=== PATIENT | male | born 1970 | race Caucasian/White ===

== ENCOUNTER 2020-09-04 10:06 | Inpatient (IN) | payer OTHER ==
[2020-09-04 12:00] VITALS: BMI 18.6
[2020-09-04] MEDS ORDERED: MAGNESIUM CITRATE 300 ML BOTTLE PO PRN (13:42)
[2020-09-04] MEDS ORDERED: NICOTINE POLACRILEX 2 MG GUM BUC PRN (13:42)
[2020-09-04] MEDS ORDERED: BISMUTH SUBSALICYLATE 262 MG/15 ML BTL PO PRN (13:42)
[2020-09-04] MEDS ORDERED: ACETAMINOPHEN 325 MG TABLET (FP) PO PRN ×2 (13:42)
[2020-09-04] MEDS ORDERED: MAGNESIUM HYDROX 2400MG/30ML ORAL SUSPENSION 30 ML CUP PO PRN (13:42)
[2020-09-04] MEDS ORDERED: MENTHOL/PHENOL 1 EACH UD MM PRN (13:42)
[2020-09-04] MEDS ORDERED: ONDANSETRON *ODT* 4 MG TABLET SL PRN (13:42)
[2020-09-04] MEDS ORDERED: chlordiazePOXIDE HCL 25 MG CAPSULE PO PRN (13:42)
[2020-09-04] MEDS ORDERED: MAG HYDROX/AL HYDROX/SIMETH 30 ML UNIT-DOSE CUP PO PRN (13:42)
[2020-09-04] MEDS ORDERED: IBUPROFEN 400 MG TABLET (FP) PO PRN (13:42)
[2020-09-04] MEDS: METHOCARBAMOL 500 MG TABLET PO PRN (14:58)
[2020-09-04] MEDS: hydrOXYzine PAMOATE 25 MG CAPSULE (FP) PO SCH ×3 (14:58→22:06)
[2020-09-04] MEDS: NICOTINE 21 MG/24 HOURS TOPICAL PATCH TD SCH (14:59)
[2020-09-04] MEDS: PRENATAL VITAMINS W/ FOLIC ACID TABLET (FP) PO SCH (14:59)
[2020-09-04 17:44] LABS: ALBUMIN 4.2 g/dl (3.4-5.0); CALCIUM 9.5 mg/dL (8.5-10.1)
[2020-09-04 17:45] LABS: HEMOGLOBIN 13.5 GM/dL (11.7-16.9); MCH 33.3 pg (25.7-33.7); MCHC 33.7 g/dl (32.0-35.9); MEAN CELL VOLUME 98.8 fl (80-96); MEAN PLT VOLUME 9.9 fl (7.5-11.1); PLATELET COUNT 210 K/MM3 (134-434); RBC 4.04 M/mm3 (4.00-5.60); RDW 12.6 % (11.9-15.9); WHITE BLOOD COUNT 13.1 K/mm3 (4.0-10.0)
[2020-09-04 17:47] LABS: CREATININE 0.9 mg/dL (0.55-1.3)
[2020-09-04 17:49] LABS: BILIRUBIN,TOTAL 0.8 mg/dL (0.2-1); TOT PROT 7.5 g/dl (6.4-8.2)
[2020-09-04] MEDS: chlordiazePOXIDE HCL 25 MG CAPSULE PO SCH ×2 (18:20→22:05)
[2020-09-04] MEDS: THIAMINE HCL 100 MG TABLET (FP) PO SCH (22:06)
[2020-09-04] MEDS: MELATONIN 5 MG TABLETS PO SCH (22:31)
[2020-09-05] MEDS: chlordiazePOXIDE HCL 25 MG CAPSULE PO SCH ×4 (06:34→22:29)
[2020-09-05] MEDS: hydrOXYzine PAMOATE 25 MG CAPSULE (FP) PO SCH ×5 (06:35→22:28)
[2020-09-05] MEDS: ALBUTEROL SO4 0.083% IH SOL 2.5 MG/3 ML VIAL.NEB. NEB PRN (07:14)
[2020-09-05] MEDS ORDERED: PENICILLIN G BENZATHINE 2,400,000 UNIT/4 ML PFS IM ONE (09:48)
[2020-09-05] MEDS: NICOTINE 21 MG/24 HOURS TOPICAL PATCH TD SCH (10:40)
[2020-09-05] MEDS: PRENATAL VITAMINS W/ FOLIC ACID TABLET (FP) PO SCH (10:41)
[2020-09-05] MEDS: THIAMINE HCL 100 MG TABLET (FP) PO SCH (22:28)
[2020-09-05] MEDS: MELATONIN 5 MG TABLETS PO SCH (22:28)
[2020-09-06] MEDS: hydrOXYzine PAMOATE 25 MG CAPSULE (FP) PO SCH ×5 (06:53→22:15)
[2020-09-06] MEDS: chlordiazePOXIDE HCL 25 MG CAPSULE PO SCH ×4 (06:54→22:15)
[2020-09-06] MEDS: METHOCARBAMOL 500 MG TABLET PO PRN ×2 (06:54→22:16)
[2020-09-06] MEDS: PRENATAL VITAMINS W/ FOLIC ACID TABLET (FP) PO SCH (10:25)
[2020-09-06] MEDS: NICOTINE 21 MG/24 HOURS TOPICAL PATCH TD SCH (10:25)
[2020-09-06 11:04] LABS: BASO % 0.8 % (0-2.0); EOS % 19.2 % (0-4.5); HEMATOCRIT 40.1 % (35.4-49); HEMOGLOBIN 13.5 GM/dL (11.7-16.9); LYMPH % 13.5 % (8-40); MCH 33.2 pg (25.7-33.7); MCHC 33.5 g/dl (32.0-35.9); MEAN CELL VOLUME 99.1 fl (80-96); MEAN PLT VOLUME 10.1 fl (7.5-11.1); MONO % 11.8 % (3.8-10.2); NEUT % 54.7 % (42.8-82.8); PLATELET COUNT 191 K/MM3 (134-434); RBC 4.05 M/mm3 (4.00-5.60); RDW 12.6 % (11.9-15.9); WHITE BLOOD COUNT 8.3 K/mm3 (4.0-10.0)
[2020-09-06] MEDS: ALBUTEROL SO4 0.083% IH SOL 2.5 MG/3 ML VIAL.NEB. NEB PRN (15:36)
[2020-09-06] MEDS: THIAMINE HCL 100 MG TABLET (FP) PO SCH (22:15)
[2020-09-06] MEDS: MELATONIN 5 MG TABLETS PO SCH (22:15)
[2020-09-07] MEDS ORDERED: chlordiazePOXIDE HCL 10 MG CAPSULE PO PRN
[2020-09-07] MEDS: hydrOXYzine PAMOATE 25 MG CAPSULE (FP) PO SCH ×5 (06:41→22:06)
[2020-09-07] MEDS: chlordiazePOXIDE HCL 10 MG CAPSULE PO SCH ×4 (06:42→22:07)
[2020-09-07] MEDS: PRENATAL VITAMINS W/ FOLIC ACID TABLET (FP) PO SCH (10:24)
[2020-09-07] MEDS: NICOTINE 21 MG/24 HOURS TOPICAL PATCH TD SCH (10:25)
[2020-09-07] MEDS: ALBUTEROL SO4 0.083% IH SOL 2.5 MG/3 ML VIAL.NEB. NEB PRN (11:49)
[2020-09-07] MEDS: MELATONIN 5 MG TABLETS PO SCH (22:06)
[2020-09-07] MEDS: THIAMINE HCL 100 MG TABLET (FP) PO SCH (22:06)
[2020-09-08] MEDS: hydrOXYzine PAMOATE 25 MG CAPSULE (FP) PO SCH ×5 (05:08→22:05)
[2020-09-08] MEDS: chlordiazePOXIDE HCL 10 MG CAPSULE PO SCH ×2 (05:08→18:00)
[2020-09-08] MEDS: NICOTINE 21 MG/24 HOURS TOPICAL PATCH TD SCH (10:07)
[2020-09-08] MEDS: PRENATAL VITAMINS W/ FOLIC ACID TABLET (FP) PO SCH (10:07)
[2020-09-08] MEDS: ALBUTEROL SO4 0.083% IH SOL 2.5 MG/3 ML VIAL.NEB. NEB PRN (11:36)
[2020-09-08] MEDS: THIAMINE HCL 100 MG TABLET (FP) PO SCH (22:05)
[2020-09-08] MEDS: MELATONIN 5 MG TABLETS PO SCH (22:05)
[2020-09-09] MEDS ORDERED: chlordiazePOXIDE HCL 10 MG CAPSULE PO ONE (05:00)
[2020-09-09] MEDS: hydrOXYzine PAMOATE 25 MG CAPSULE (FP) PO SCH (05:08)
[2020-09-09 06:57] VITALS: TEMP 97.8
[2020-09-09 09:44] VITALS: BP 99/55; PULSE 76
[2020-09-09] MEDS ORDERED: ALBUTEROL SO4 HFA INHALER IH PRN (09:51)
== END 2020-09-09 09:11 | disposition home or self-care (01) | DRG 774 ==
LOC: YASAS 10:06 → Y6N 13:12
PROVIDERS: ADMIT Allergy & Immunology; ATTEND Allergy & Immunology
PROC: HZ2ZZZZ Detoxification Services for Substance Abuse Treatment (ICD-10-PCS; principal; 2020-09-04)
DX: F10.230 Alcohol dependence with withdrawal, uncomplicated (principal); F14.20 Cocaine dependence, uncomplicated; F12.10 Cannabis abuse, uncomplicated; F17.210 Nicotine dependence, cigarettes, uncomplicated; A53.0 Latent syphilis, unspecified as early or late; J44.9 Chronic obstructive pulmonary disease, unspecified; J45.909 Unspecified asthma, uncomplicated; R63.4 Abnormal weight loss; Z68.1 Body mass index [BMI] 19.9 or less, adult
CPT/HCPCS: 36415; 80053; 85025; 85027; 86593; 86780; 94640; C9803; U0003; U0005

== ENCOUNTER 2021-01-18 16:18 | Inpatient (IN) | payer OTHER ==
[2021-01-18 18:00] VITALS: BMI 17.3
[2021-01-18] MEDS ORDERED: NICOTINE 10 MG CARTRIDGE (INHALER) IH PRN (18:46)
[2021-01-18] MEDS ORDERED: MAGNESIUM CITRATE 300 ML BOTTLE PO PRN (18:46)
[2021-01-18] MEDS ORDERED: MAG HYDROX/AL HYDROX/SIMETH 30 ML UNIT-DOSE CUP PO PRN (18:46)
[2021-01-18] MEDS ORDERED: BISMUTH SUBSALICYLATE 524 MG/30 ML PO PRN (18:46)
[2021-01-18] MEDS ORDERED: METHOCARBAMOL 500 MG TABLET PO PRN (18:46)
[2021-01-18] MEDS ORDERED: IBUPROFEN 400 MG TABLET (FP) PO PRN (18:46)
[2021-01-18] MEDS ORDERED: ONDANSETRON *ODT* 4 MG TABLET SL PRN (18:46)
[2021-01-18] MEDS ORDERED: LORazepam 1 MG TABLET PO PRN (18:46)
[2021-01-18] MEDS ORDERED: ACETAMINOPHEN 325 MG TABLET (FP) PO PRN (18:46)
[2021-01-18] MEDS ORDERED: hydrOXYzine PAMOATE 25 MG CAPSULE (FP) PO PRN (18:46)
[2021-01-18] MEDS ORDERED: MENTHOL/PHENOL 1 EACH UD MM PRN (18:46)
[2021-01-18] MEDS ORDERED: MAGNESIUM HYDROX 2400MG/30ML ORAL SUSPENSION 30 ML CUP PO PRN (18:46)
[2021-01-18] MEDS ORDERED: ALBUTEROL SO4 HFA INHALER IH PRN (20:19)
[2021-01-18] MEDS: ALBUTEROL SO4 0.083% IH SOL 2.5 MG/3 ML VIAL.NEB. NEB PRN (21:12)
[2021-01-18] MEDS ORDERED: traZODone HCL 100 MG TABLET (FP) PO PRN (22:00)
[2021-01-18] MEDS: BUDESONIDE/FORMETEROL FUMARATE 160/4.5 mcg INHALER IH SCH (22:31)
[2021-01-18] MEDS: LORazepam 2 MG TABLET PO SCH (22:31)
[2021-01-18] MEDS: THIAMINE HCL 100 MG TABLET (FP) PO SCH (22:31)
[2021-01-18] MEDS: MELATONIN 5 MG TABLETS PO PRN (22:31)
[2021-01-19] MEDS: LORazepam 2 MG TABLET PO SCH ×4 (06:39→22:29)
[2021-01-19] MEDS ORDERED: COVID-19 VAC,AD26(JANSSEN)/PF 0.5 ML IM ONE (10:00)
[2021-01-19] MEDS: PRENATAL VITAMINS W/ FOLIC ACID TABLET (FP) PO SCH (10:29)
[2021-01-19] MEDS: BUDESONIDE/FORMETEROL FUMARATE 160/4.5 mcg INHALER IH SCH ×2 (10:31→22:05)
[2021-01-19 18:23] LABS: HEMATOCRIT 37.5 % (35.4-49); HEMOGLOBIN 12.7 GM/dL (11.7-16.9); MCH 33.1 pg (25.7-33.7); MCHC 33.9 g/dl (32.0-35.9); MEAN CELL VOLUME 97.9 fl (80-96); MEAN PLT VOLUME 9.5 fl (7.5-11.1); PLATELET COUNT 178 10^3/uL (134-434); RBC 3.83 M/mm3 (4.00-5.60)
[2021-01-19 18:36] LABS: CALCIUM 8.7 mg/dL (8.5-10.1)
[2021-01-19 18:37] LABS: ALBUMIN 3.5 g/dl (3.4-5.0); BLOOD UREA NITROGEN 17.3 mg/dL (7-18)
[2021-01-19 18:40] LABS: CREATININE 0.7 mg/dL (0.55-1.3)
[2021-01-19 18:42] LABS: BILIRUBIN,TOTAL 0.8 mg/dL (0.2-1); TOT PROT 6.3 g/dl (6.4-8.2)
[2021-01-19] MEDS: traZODone HCL 50 MG TABLET (FP) PO SCH (22:05)
[2021-01-19] MEDS: MELATONIN 5 MG TABLETS PO PRN (22:06)
[2021-01-19] MEDS: THIAMINE HCL 100 MG TABLET (FP) PO SCH (22:06)
[2021-01-20] MEDS: LORazepam 1 MG TABLET PO SCH ×4 (05:31→22:24)
[2021-01-20] MEDS: PRENATAL VITAMINS W/ FOLIC ACID TABLET (FP) PO SCH (10:07)
[2021-01-20] MEDS: BUDESONIDE/FORMETEROL FUMARATE 160/4.5 mcg INHALER IH SCH ×2 (10:07→22:25)
[2021-01-20] MEDS: ALBUTEROL SO4 0.083% IH SOL 2.5 MG/3 ML VIAL.NEB. NEB PRN (19:55)
[2021-01-20] MEDS: traZODone HCL 50 MG TABLET (FP) PO SCH (22:21)
[2021-01-20] MEDS: MELATONIN 5 MG TABLETS PO PRN (22:21)
[2021-01-20] MEDS: THIAMINE HCL 100 MG TABLET (FP) PO SCH (22:22)
[2021-01-21] MEDS ORDERED: LORazepam 0.5 MG TABLET PO PRN
[2021-01-21] MEDS: LORazepam 0.5 MG TABLET PO SCH ×4 (05:40→22:09)
[2021-01-21] MEDS: ACETAMINOPHEN 325 MG TABLET (FP) PO PRN (07:28)
[2021-01-21] MEDS: BUDESONIDE/FORMETEROL FUMARATE 160/4.5 mcg INHALER IH SCH ×2 (10:37→22:40)
[2021-01-21] MEDS: PRENATAL VITAMINS W/ FOLIC ACID TABLET (FP) PO SCH (10:38)
[2021-01-21] MEDS: ALBUTEROL SO4 0.083% IH SOL 2.5 MG/3 ML VIAL.NEB. NEB PRN (15:44)
[2021-01-21] MEDS: traZODone HCL 50 MG TABLET (FP) PO SCH (22:08)
[2021-01-21] MEDS: THIAMINE HCL 100 MG TABLET (FP) PO SCH (22:08)
[2021-01-22] MEDS ORDERED: LORazepam 0.5 MG TABLET PO ONE (05:00)
[2021-01-22] MEDS: ACETAMINOPHEN 325 MG TABLET (FP) PO PRN (06:14)
[2021-01-22 09:45] VITALS: BP 120/63; PULSE 61; TEMP 96.8
[2021-01-22] MEDS: BUDESONIDE/FORMETEROL FUMARATE 160/4.5 mcg INHALER IH SCH (11:04)
[2021-01-22] MEDS: PRENATAL VITAMINS W/ FOLIC ACID TABLET (FP) PO SCH (11:04)
== END 2021-01-22 12:30 | disposition home or self-care (01) | DRG 774 ==
LOC: YASAS 16:18 → Y3N 19:50
PROVIDERS: ADMIT Allergy & Immunology; ATTEND Allergy & Immunology
PROC: HZ2ZZZZ Detoxification Services for Substance Abuse Treatment (ICD-10-PCS; principal; 2021-01-18)
DX: F10.230 Alcohol dependence with withdrawal, uncomplicated (principal); F14.20 Cocaine dependence, uncomplicated; F12.20 Cannabis dependence, uncomplicated; F17.210 Nicotine dependence, cigarettes, uncomplicated; U07.1 COVID-19; G47.00 Insomnia, unspecified; J45.20 Mild intermittent asthma, uncomplicated; J44.9 Chronic obstructive pulmonary disease, unspecified; A53.0 Latent syphilis, unspecified as early or late
CPT/HCPCS: 36415; 80053; 85027; 86593; 86780; 94640; C9803; U0003; U0005

== ENCOUNTER 2021-08-02 15:07 | Inpatient (IN) | payer OTHER ==
[2021-08-02 15:39] VITALS: BMI 16.7
[2021-08-02] MEDS ORDERED: LOPERAMIDE HCL 2 MG CAPSULE PO PRN (16:25)
[2021-08-02] MEDS ORDERED: ONDANSETRON *ODT* 4 MG TABLET SL PRN (16:25)
[2021-08-02] MEDS ORDERED: MELATONIN 5 MG TABLETS PO PRN (16:25)
[2021-08-02] MEDS ORDERED: METHOCARBAMOL 500 MG TABLET PO PRN (16:25)
[2021-08-02] MEDS ORDERED: ACETAMINOPHEN 325 MG TABLET (FP) PO PRN ×2 (16:25)
[2021-08-02] MEDS ORDERED: NICOTINE 10 MG CARTRIDGE (INHALER) IH PRN (16:25)
[2021-08-02] MEDS ORDERED: MAGNESIUM HYDROX 2400MG/30ML ORAL SUSPENSION 30 ML CUP PO PRN (16:25)
[2021-08-02] MEDS ORDERED: MAG HYDROX/AL HYDROX/SIMETH 30 ML UNIT-DOSE CUP PO PRN (16:25)
[2021-08-02] MEDS ORDERED: MAGNESIUM CITRATE 300 ML BOTTLE PO PRN (16:25)
[2021-08-02] MEDS ORDERED: IBUPROFEN 400 MG TABLET (FP) PO PRN (16:25)
[2021-08-02] MEDS ORDERED: NICOTINE POLACRILEX 2 MG GUM BUC PRN (16:25)
[2021-08-02] MEDS ORDERED: BISMUTH SUBSALICYLATE 524 MG/30 ML PO PRN (16:25)
[2021-08-02] MEDS ORDERED: MENTHOL/PHENOL 1 EACH UD MM PRN (16:25)
[2021-08-02] MEDS ORDERED: diazePAM 5 MG TABLET PO PRN (16:27)
[2021-08-02] MEDS: ALBUTEROL SO4 0.083% IH SOL 2.5 MG/3 ML VIAL.NEB. NEB PRN (20:41)
[2021-08-02] MEDS ORDERED: traZODone HCL 100 MG TABLET (FP) PO ONE (22:00)
[2021-08-02] MEDS: THIAMINE HCL 100 MG TABLET (FP) PO SCH (22:10)
[2021-08-02] MEDS: BUDESONIDE/FORMETEROL FUMARATE 160/4.5 mcg INHALER IH SCH (22:14)
[2021-08-03 10:23] LABS: HEMATOCRIT 34.9 % (35.4-49); HEMOGLOBIN 12.2 GM/dL (11.7-16.9); MCH 34.1 pg (25.7-33.7); MCHC 35.1 g/dl (32.0-35.9); MEAN CELL VOLUME 97.1 fl (80-96); MEAN PLT VOLUME 9.4 fl (7.5-11.1); PLATELET COUNT 196 10^3/uL (134-434); RBC 3.59 M/mm3 (4.00-5.60); RDW 12.1 % (11.9-15.9); WHITE BLOOD COUNT 8.8 K/mm3 (4.0-10.0)
[2021-08-03] MEDS: PRENATAL VITAMINS W/ FOLIC ACID TABLET (FP) PO SCH (10:35)
[2021-08-03] MEDS: BUDESONIDE/FORMETEROL FUMARATE 160/4.5 mcg INHALER IH SCH ×2 (10:35→22:06)
[2021-08-03 10:43] LABS: CALCIUM 8.1 mg/dL (8.5-10.1); CREATININE 0.7 mg/dL (0.55-1.3)
[2021-08-03 10:44] LABS: ALBUMIN 3.1 g/dl (3.4-5.0); BILIRUBIN,TOTAL 0.8 mg/dL (0.2-1); BLOOD UREA NITROGEN 14.2 mg/dL (7-18); TOT PROT 5.8 g/dl (6.4-8.2)
[2021-08-03] MEDS: PATIENT'S OWN MEDICATION (NON-FORMULARY) (Bictegrav/Emtricit/Tenofov Ala [Biktarvy 50-200- PO SCH (14:30)
[2021-08-03] MEDS: ALBUTEROL SO4 0.083% IH SOL 2.5 MG/3 ML VIAL.NEB. NEB PRN (15:14)
[2021-08-03] MEDS ORDERED: diazePAM 5 MG TABLET PO PRN (15:51)
[2021-08-03] MEDS ORDERED: diazePAM 5 MG TABLET PO SCH (17:00)
[2021-08-03] MEDS: diazePAM 5 MG TABLET PO SCH ×2 (17:49→22:06)
[2021-08-03 20:06] LABS: URINE APPEARANCE CLEAR; URINE BILIRUBIN NEGATIVE (NEGATIVE); URINE COLOR YELLOW; URINE GLUCOSE (UA) NEGATIVE (NEGATIVE); URINE KETONE TRACE (NEGATIVE); URINE LEUK ESTERASE NEGATIVE (NEGATIVE); URINE NITRITE NEGATIVE (NEGATIVE); URINE PROTEIN NEGATIVE (NEGATIVE)
[2021-08-03] MEDS: traZODone HCL 100 MG TABLET (FP) PO SCH (22:05)
[2021-08-03] MEDS: THIAMINE HCL 100 MG TABLET (FP) PO SCH (22:05)
[2021-08-04] MEDS ORDERED: diazePAM 5 MG TABLET PO PRN (00:01)
[2021-08-04] MEDS: diazePAM 5 MG TABLET PO SCH ×3 (05:54→22:26)
[2021-08-04] MEDS: PATIENT'S OWN MEDICATION (NON-FORMULARY) (Bictegrav/Emtricit/Tenofov Ala [Biktarvy 50-200- PO SCH (10:37)
[2021-08-04] MEDS: hydrOXYzine PAMOATE 25 MG CAPSULE (FP) PO PRN (10:37)
[2021-08-04] MEDS: BUDESONIDE/FORMETEROL FUMARATE 160/4.5 mcg INHALER IH SCH ×2 (10:38→22:32)
[2021-08-04] MEDS: PRENATAL VITAMINS W/ FOLIC ACID TABLET (FP) PO SCH (10:39)
[2021-08-04] MEDS: traZODone HCL 100 MG TABLET (FP) PO SCH (22:26)
[2021-08-04] MEDS: THIAMINE HCL 100 MG TABLET (FP) PO SCH (22:26)
[2021-08-05] MEDS: hydrOXYzine PAMOATE 25 MG CAPSULE (FP) PO PRN (05:52)
[2021-08-05] MEDS: diazePAM 5 MG TABLET PO SCH ×2 (05:52→18:27)
[2021-08-05] MEDS: PATIENT'S OWN MEDICATION (NON-FORMULARY) (Bictegrav/Emtricit/Tenofov Ala [Biktarvy 50-200- PO SCH (10:28)
[2021-08-05] MEDS: PRENATAL VITAMINS W/ FOLIC ACID TABLET (FP) PO SCH (10:29)
[2021-08-05] MEDS: BUDESONIDE/FORMETEROL FUMARATE 160/4.5 mcg INHALER IH SCH ×2 (10:29→23:01)
[2021-08-05] MEDS: traZODone HCL 100 MG TABLET (FP) PO SCH (23:01)
[2021-08-05] MEDS: THIAMINE HCL 100 MG TABLET (FP) PO SCH (23:02)
[2021-08-06] MEDS ORDERED: diazePAM 5 MG TABLET PO ONE (06:00)
[2021-08-06 09:37] VITALS: BP 122/79; PULSE 81; TEMP 96.8
== END 2021-08-06 09:59 | disposition home or self-care (01) | DRG 775 ==
LOC: YASAS 15:07 → Y6N 17:48
PROVIDERS: ADMIT Allergy & Immunology; ATTEND Allergy & Immunology
PROC: HZ2ZZZZ Detoxification Services for Substance Abuse Treatment (ICD-10-PCS; principal; 2021-08-02)
DX: F10.230 Alcohol dependence with withdrawal, uncomplicated (principal); F15.20 Other stimulant dependence, uncomplicated; F12.20 Cannabis dependence, uncomplicated; F17.210 Nicotine dependence, cigarettes, uncomplicated; F19.282 Other psychoactive substance dependence with psychoactive substance-induced sleep disorder; Z21 Asymptomatic human immunodeficiency virus [HIV] infection status; J44.9 Chronic obstructive pulmonary disease, unspecified; J45.20 Mild intermittent asthma, uncomplicated; K59.00 Constipation, unspecified; A53.0 Latent syphilis, unspecified as early or late; Z86.19 Personal history of other infectious and parasitic diseases; Z86.16 Personal history of COVID-19
CPT/HCPCS: 36415; 71120-TC-FY; 74018-TC-FY; 80053; 81003; 85027; 86593; 86780; 87811; 93005; 93010; 94640; C9803-CS; Q0162; U0003; U0005

== ENCOUNTER 2023-07-08 10:24 | Inpatient (IN) | payer OTHER ==
[2023-07-08 11:37] VITALS: BMI 18.1
[2023-07-08] MEDS ORDERED: NICOTINE POLACRILEX 2 MG GUM BUC PRN (13:15)
[2023-07-08] MEDS ORDERED: hydrOXYzine PAMOATE 25 MG CAPSULE (FP) PO PRN (13:15)
[2023-07-08] MEDS ORDERED: ACETAMINOPHEN 325 MG TABLET (FP) PO PRN (13:15)
[2023-07-08] MEDS ORDERED: METHOCARBAMOL 500 MG TABLET PO PRN (13:15)
[2023-07-08] MEDS ORDERED: MAGNESIUM HYDROX 2400MG/30ML ORAL SUSPENSION 30 ML CUP PO PRN (13:15)
[2023-07-08] MEDS ORDERED: POLYETHYLENE GLYCOL (HEALTHYLAX) 3350 17 GM PACKET PO PRN (13:15)
[2023-07-08] MEDS ORDERED: IBUPROFEN 400 MG TABLET (FP) PO PRN (13:15)
[2023-07-08] MEDS ORDERED: IBUPROFEN 600 MG TABLET (FP) PO PRN (13:15)
[2023-07-08] MEDS ORDERED: guaiFENesin 600 MG TABLET.ER (FP) PO PRN (13:15)
[2023-07-08] MEDS ORDERED: LOPERAMIDE HCL 2 MG CAPSULE PO PRN (13:15)
[2023-07-08] MEDS ORDERED: NALOXONE HCL 0.4 MG/ML VIAL IM PRN (13:15)
[2023-07-08] MEDS ORDERED: MAG HYDROX/AL HYDROX/SIMETH 30 ML UNIT-DOSE CUP PO PRN (13:15)
[2023-07-08] MEDS ORDERED: BISMUTH SUBSALICYLATE 524 MG/30 ML PO PRN (13:15)
[2023-07-08] MEDS ORDERED: NALOXONE HCL (KLOXXADO) 8 MG SPRAY NS PRN (13:15)
[2023-07-08] MEDS ORDERED: BENZONATATE 200 MG CAPSULE PO PRN (13:15)
[2023-07-08] MEDS ORDERED: DICYCLOMINE HCL 10 MG CAPSULE PO PRN (13:15)
[2023-07-08] MEDS ORDERED: BENZOCAINE/MENTHOL (CHLORASEPTIC ) LOZENGE MM PRN (13:15)
[2023-07-08] MEDS ORDERED: ONDANSETRON *ODT* 4 MG TABLET SL PRN (13:15)
[2023-07-08] MEDS ORDERED: diazePAM 5 MG TABLET PO PRN (15:15)
[2023-07-08] MEDS: diazePAM 5 MG TABLET PO SCH (17:07)
[2023-07-08] MEDS: ALBUTEROL SO4 2.5/IPRATROPIUM 0.5 INH SOL 3 ML VIAL.NEB. NEB ONE (18:30)
[2023-07-08] MEDS: predniSONE 20 MG TABLET (UD) PO SCH (19:51)
[2023-07-08] MEDS: THIAMINE HCL 100 MG TABLET (FP) PO SCH (22:01)
[2023-07-08] MEDS: MELATONIN 5 MG TABLETS PO SCH (22:01)
[2023-07-08] MEDS: ATORVASTATIN CA 80 MG TABLET (FP) PO SCH (22:01)
[2023-07-08] MEDS: traZODone HCL 100 MG TABLET (FP) PO ONE (23:50)
[2023-07-09] MEDS: ALBUTEROL SO4 HFA INHALER IH PRN (05:20)
[2023-07-09] MEDS: BICTEGRAV/EMTRICIT/TENOFOV (BIKTARVY) 50-200-25 MG TABLET PO SCH (08:00)
[2023-07-09] MEDS: LISINOPRIL 5 MG TABLET PO SCH (10:22)
[2023-07-09] MEDS: ASPIRIN 81 MG CHEWABLE TABLETS PO SCH (10:22)
[2023-07-09] MEDS: PRENATAL VITAMINS W/ FOLIC ACID TABLET (FP) PO SCH (10:24)
[2023-07-09 10:34] LABS: CHLORIDE 108 mmol/L (98-107); POTASSIUM 4.8 mmol/L (3.5-5.1); SODIUM 140 mmol/L (136-145)
[2023-07-09 10:35] LABS: CALCIUM 8.6 mg/dL (8.5-10.1); HEMATOCRIT 35.4 % (35.4-49); HEMOGLOBIN 12.1 GM/dL (11.7-16.9); MCH 33.8 pg (25.7-33.7); MCHC 34.2 g/dl (32.0-35.9); MEAN CELL VOLUME 98.9 fl (80-96); MEAN PLT VOLUME 9.3 fl (7.5-11.1); PLATELET COUNT 221 10^3/uL (134-434); RBC 3.58 M/mm3 (4.00-5.60); RDW 12.6 % (11.9-15.9); WHITE BLOOD COUNT 9.5 K/mm3 (4.0-10.0)
[2023-07-09 10:36] LABS: ALBUMIN 3.2 g/dl (3.4-5.0); ANION GAP 4 mmol/L (4-13); BLOOD UREA NITROGEN 15.8 mg/dL (7-18); CO2 29 mmol/L (21-32); GLUCOSE,RANDOM 106 mg/dL (74-106)
[2023-07-09 10:40] LABS: CREATININE 0.7 mg/dL (0.55-1.3); SGOT/AST 15 U/L (15-37); SGPT/ALT 25 U/L (13-61)
[2023-07-09 10:41] LABS: BILIRUBIN,TOTAL 0.5 mg/dL (0.2-1); TOT PROT 5.8 g/dl (6.4-8.2)
[2023-07-09 10:43] LABS: ALK PHOS 101 U/L (45-117)
[2023-07-09] MEDS: ALBUTEROL SO4 0.083% IH SOL 2.5 MG/3 ML VIAL.NEB. NEB PRN (12:09)
[2023-07-09] MEDS: traZODone HCL 100 MG TABLET (FP) PO SCH (22:08)
[2023-07-10] MEDS: diazePAM 5 MG TABLET PO SCH (05:34)
[2023-07-11] MEDS: diazePAM 5 MG TABLET PO SCH (05:35)
[2023-07-11 17:09] VITALS: TEMP 97.7
[2023-07-11 20:56] VITALS: BP 112/66; PULSE 89; RESP 17
[2023-07-12] MEDS: diazePAM 5 MG TABLET PO ONE (05:31)
== END 2023-07-12 08:50 | disposition home or self-care (01) | DRG 774 ==
LOC: YASAS 10:24 → Y6N 13:40
PROVIDERS: ADMIT Allergy & Immunology; ATTEND Surgery
PROC: HZ2ZZZZ Detoxification Services for Substance Abuse Treatment (ICD-10-PCS; principal; 2023-07-08)
DX: F10.230 Alcohol dependence with withdrawal, uncomplicated (principal); F14.20 Cocaine dependence, uncomplicated; F17.210 Nicotine dependence, cigarettes, uncomplicated; F19.282 Other psychoactive substance dependence with psychoactive substance-induced sleep disorder; Z21 Asymptomatic human immunodeficiency virus [HIV] infection status; I25.10 Atherosclerotic heart disease of native coronary artery without angina pectoris; I10 Essential (primary) hypertension; Z95.1 Presence of aortocoronary bypass graft; E78.2 Mixed hyperlipidemia; G47.00 Insomnia, unspecified; J44.1 Chronic obstructive pulmonary disease with (acute) exacerbation; J45.20 Mild intermittent asthma, uncomplicated; R76.8 Other specified abnormal immunological findings in serum
CPT/HCPCS: 36415; 80053; 80307; 85027; 86593; 86780; 87635; 93005; 93010; 94640

== ENCOUNTER 2023-08-27 12:54 | Inpatient (IN) | payer OTHER ==
[2023-08-27 13:30] VITALS: BMI 17.9
[2023-08-27] MEDS ORDERED: NICOTINE POLACRILEX 2 MG GUM BUC PRN (13:45)
[2023-08-27] MEDS ORDERED: ONDANSETRON *ODT* 4 MG TABLET SL PRN (13:45)
[2023-08-27] MEDS ORDERED: IBUPROFEN 600 MG TABLET (FP) PO PRN (13:45)
[2023-08-27] MEDS ORDERED: BENZOCAINE/MENTHOL (CHLORASEPTIC ) LOZENGE MM PRN (13:45)
[2023-08-27] MEDS ORDERED: MAG HYDROX/AL HYDROX/SIMETH 30 ML UNIT-DOSE CUP PO PRN (13:45)
[2023-08-27] MEDS ORDERED: LOPERAMIDE HCL 2 MG CAPSULE PO PRN (13:45)
[2023-08-27] MEDS ORDERED: METHOCARBAMOL 500 MG TABLET PO PRN (13:45)
[2023-08-27] MEDS ORDERED: DICYCLOMINE HCL 10 MG CAPSULE PO PRN (13:45)
[2023-08-27] MEDS ORDERED: IBUPROFEN 400 MG TABLET (FP) PO PRN (13:45)
[2023-08-27] MEDS ORDERED: POLYETHYLENE GLYCOL (HEALTHYLAX) 3350 17 GM PACKET PO PRN (13:45)
[2023-08-27] MEDS ORDERED: MAGNESIUM HYDROX 2400MG/30ML ORAL SUSPENSION 30 ML CUP PO PRN (13:45)
[2023-08-27] MEDS ORDERED: BENZONATATE 200 MG CAPSULE PO PRN (13:45)
[2023-08-27] MEDS ORDERED: ACETAMINOPHEN 325 MG TABLET (FP) PO PRN (13:45)
[2023-08-27] MEDS ORDERED: BISMUTH SUBSALICYLATE 524 MG/30 ML PO PRN (13:45)
[2023-08-27] MEDS ORDERED: diazePAM 5 MG TABLET PO PRN (13:49)
[2023-08-27] MEDS: ALBUTEROL SO4 HFA INHALER IH PRN (15:56)
[2023-08-27] MEDS: ALBUTEROL SO4 2.5/IPRATROPIUM 0.5 INH SOL 3 ML VIAL.NEB. NEB ONE (16:28)
[2023-08-27] MEDS: diazePAM 5 MG TABLET PO SCH (19:35)
[2023-08-27] MEDS: ATORVASTATIN CA 80 MG TABLET (FP) PO SCH (22:11)
[2023-08-27] MEDS: MELATONIN 5 MG TABLETS PO SCH (22:12)
[2023-08-27] MEDS: THIAMINE HCL 100 MG TABLET (FP) PO SCH (22:12)
[2023-08-28] MEDS: guaiFENesin 600 MG TABLET.ER (FP) PO PRN (05:56)
[2023-08-28] MEDS: PRENATAL VITAMINS W/ FOLIC ACID TABLET (FP) PO SCH (10:25)
[2023-08-28] MEDS: CLOPIDOGREL BISULFATE 75 MG TABLET (FP) PO SCH (10:25)
[2023-08-28] MEDS: BICTEGRAV/EMTRICIT/TENOFOV (BIKTARVY) 50-200-25 MG TABLET PO SCH (10:25)
[2023-08-28] MEDS: ASPIRIN 81 MG CHEWABLE TABLETS PO SCH (10:25)
[2023-08-28 11:13] LABS: HEMATOCRIT 38.6 % (35.4-49); HEMOGLOBIN 12.9 GM/dL (11.7-16.9); MCH 32.8 pg (25.7-33.7); MCHC 33.3 g/dl (32.0-35.9); MEAN CELL VOLUME 98.6 fl (80-96); MEAN PLT VOLUME 9.3 fl (7.5-11.1); PLATELET COUNT 205 10^3/uL (134-434); RBC 3.92 M/mm3 (4.00-5.60); RDW 12.7 % (11.9-15.9); WHITE BLOOD COUNT 10.3 K/mm3 (4.0-10.0)
[2023-08-28] MEDS: ALBUTEROL SO4 0.083% IH SOL 2.5 MG/3 ML VIAL.NEB. NEB PRN (11:15)
[2023-08-28 11:18] LABS: CHLORIDE 108 mmol/L (98-107); POTASSIUM 4.1 mmol/L (3.5-5.1); SODIUM 142 mmol/L (136-145)
[2023-08-28 11:25] LABS: ALBUMIN 3.2 g/dl (3.4-5.0); ANION GAP 5 mmol/L (4-13); BLOOD UREA NITROGEN 14.8 mg/dL (7-18); CALCIUM 8.3 mg/dL (8.5-10.1); CO2 29 mmol/L (21-32)
[2023-08-28 11:27] LABS: CREATININE 0.6 mg/dL (0.55-1.3); SGPT/ALT 21 U/L (13-61)
[2023-08-28 11:28] LABS: SGOT/AST 12 U/L (15-37)
[2023-08-28 11:29] LABS: GLUCOSE,RANDOM 83 mg/dL (74-106); TOT PROT 5.7 g/dl (6.4-8.2)
[2023-08-28 11:30] LABS: BILIRUBIN,TOTAL 0.6 mg/dL (0.2-1)
[2023-08-28 11:31] LABS: ALK PHOS 68 U/L (45-117)
[2023-08-28] MEDS: traZODone HCL 50 MG TABLET (FP) PO SCH (22:09)
[2023-08-29] MEDS: diazePAM 5 MG TABLET PO SCH (05:55)
[2023-08-30] MEDS: diazePAM 5 MG TABLET PO SCH (05:54)
[2023-08-31] MEDS: diazePAM 5 MG TABLET PO ONE (06:03)
[2023-08-31 06:23] VITALS: RESP 16
[2023-08-31 09:49] VITALS: BP 96/62; PULSE 84; TEMP 97.7
== END 2023-08-31 09:45 | disposition other institution (70) | DRG 774 ==
LOC: YASAS 12:54 → Y6N 14:32
PROVIDERS: ADMIT Allergy & Immunology; ATTEND Surgery
PROC: HZ2ZZZZ Detoxification Services for Substance Abuse Treatment (ICD-10-PCS; principal; 2023-08-27)
DX: F10.230 Alcohol dependence with withdrawal, uncomplicated (principal); F14.20 Cocaine dependence, uncomplicated; F12.20 Cannabis dependence, uncomplicated; F17.210 Nicotine dependence, cigarettes, uncomplicated; F19.282 Other psychoactive substance dependence with psychoactive substance-induced sleep disorder; Z21 Asymptomatic human immunodeficiency virus [HIV] infection status; J41.1 Mucopurulent chronic bronchitis; J45.20 Mild intermittent asthma, uncomplicated; I25.10 Atherosclerotic heart disease of native coronary artery without angina pectoris; I25.2 Old myocardial infarction; Z95.5 Presence of coronary angioplasty implant and graft; R76.8 Other specified abnormal immunological findings in serum; Z86.19 Personal history of other infectious and parasitic diseases; Z79.899 Other long term (current) drug therapy
CPT/HCPCS: 0241U-QW; 36415; 80053; 80307; 85027; 86593; 86780; 93005; 93010; 94640

== ENCOUNTER 2024-09-21 18:19 | Inpatient (IN) | payer OTHER ==
[2024-09-21 19:16] VITALS: BMI 17.6
[2024-09-21] MEDS ORDERED: diazePAM 5 MG TABLET PO PRN (20:03)
[2024-09-21] MEDS ORDERED: IBUPROFEN 400 MG TABLET (FP) PO PRN (20:08)
[2024-09-21] MEDS ORDERED: NICOTINE POLACRILEX 2 MG GUM BUC PRN (20:08)
[2024-09-21] MEDS ORDERED: IBUPROFEN 600 MG TABLET (FP) PO PRN (20:08)
[2024-09-21] MEDS ORDERED: P-EPHED 60MG/TRIPROLIDI 2.5MG TABLET PO PRN (20:08)
[2024-09-21] MEDS ORDERED: NICOTINE POLACRILEX 2 MG LOZENGE BC PRN (20:08)
[2024-09-21] MEDS ORDERED: DICYCLOMINE HCL 10 MG CAPSULE PO PRN (20:08)
[2024-09-21] MEDS ORDERED: MAGNESIUM HYDROX 2400MG/30ML ORAL SUSPENSION 30 ML CUP PO PRN (20:08)
[2024-09-21] MEDS ORDERED: BENZOCAINE/MENTHOL (CHLORASEPTIC ) LOZENGE MM PRN (20:08)
[2024-09-21] MEDS ORDERED: BISMUTH SUBSALICYLATE 524 MG/30 ML PO PRN (20:08)
[2024-09-21] MEDS ORDERED: POLYETHYLENE GLYCOL (HEALTHYLAX) 3350 17 GM PACKET PO PRN (20:08)
[2024-09-21] MEDS ORDERED: BENZONATATE 200 MG CAPSULE PO PRN (20:08)
[2024-09-21] MEDS ORDERED: ONDANSETRON *ODT* 4 MG TABLET SL PRN (20:08)
[2024-09-21] MEDS ORDERED: NALOXONE (NARCAN) HCL 4 MG/0.1 ML SPRAY NS PRN (20:08)
[2024-09-21] MEDS ORDERED: ACETAMINOPHEN 325 MG TABLET (FP) PO PRN (20:08)
[2024-09-21] MEDS ORDERED: guaiFENesin 600 MG TABLET.ER (FP) PO PRN (20:08)
[2024-09-21] MEDS ORDERED: ALBUTEROL SO4 2.5/IPRATROPIUM 0.5 INH SOL 3 ML VIAL.NEB. NEB ONE (21:00)
[2024-09-21] MEDS ORDERED: diazePAM 5 MG TABLET ONE (21:00)
[2024-09-21] MEDS: diazePAM 5 MG TABLET PO ONE (21:10)
[2024-09-21] MEDS: ALBUTEROL SO4 2.5/IPRATROPIUM 0.5 INH SOL 3 ML VIAL.NEB. NEB ONE (21:11)
[2024-09-21] MEDS: ATORVASTATIN CA 80 MG TABLET (FP) PO SCH (22:50)
[2024-09-21] MEDS: MELATONIN 5 MG TABLETS PO SCH (22:50)
[2024-09-21] MEDS: THIAMINE 100 MG TABLET PO SCH (22:51)
[2024-09-21] MEDS: hydrOXYzine PAMOATE 25 MG CAPSULE (FP) PO PRN (22:51)
[2024-09-21] MEDS: diazePAM 5 MG TABLET PO SCH (22:56)
[2024-09-22] MEDS: EMPAGLIFLOZIN (JARDIANCE) 10 MG TABLET PO SCH (06:05)
[2024-09-22 10:00] LABS: HEMATOCRIT 36.2 % (40.1-51.0); HEMOGLOBIN 11.2 g/dL (13.7-17.5); MCHC 30.9 g/dl (32.3-36.5); MEAN CELL VOLUME 105.8 fl (79.0-92.2); MEAN PLT VOLUME 10.6 fl (9.4-12.4); PLATELET COUNT 321 x10^3/uL (163-337); RDW 12.9 % (12.2-16.1)
[2024-09-22 10:03] LABS: CHLORIDE 109 mmol/L (98-107); POTASSIUM 4.5 mmol/L (3.5-5.1); SODIUM 142 mmol/L (136-145)
[2024-09-22 10:05] LABS: ALBUMIN 2.8 g/dl (3.4-5.0); ANION GAP 6 mmol/L (4-13); BLOOD UREA NITROGEN 22.6 mg/dL (7-18); CALCIUM 8.5 mg/dL (8.5-10.1); CO2 28 mmol/L (21-32); GLUCOSE,RANDOM 85 mg/dL (74-106)
[2024-09-22 10:08] LABS: CREATININE 0.7 mg/dL (0.55-1.3); SGOT/AST 28 U/L (15-37); SGPT/ALT 39 U/L (13-61)
[2024-09-22 10:10] LABS: BILIRUBIN,TOTAL 0.5 mg/dL (0.2-1); TOT PROT 5.7 g/dl (6.4-8.2)
[2024-09-22 10:11] LABS: ALK PHOS 119 U/L (45-117)
[2024-09-22] MEDS: BICTEGRAV/EMTRICIT/TENOFOV (BIKTARVY) 50-200-25 MG TABLET PO SCH (10:22)
[2024-09-22] MEDS: ASPIRIN 81 MG CHEWABLE TABLETS PO SCH (10:22)
[2024-09-22] MEDS: PRENATAL VITAMINS W/ FOLIC ACID TABLET (FP) PO SCH (10:23)
[2024-09-22] MEDS: CLOPIDOGREL BISULFATE 75 MG TABLET (FP) PO SCH (10:23)
[2024-09-22] MEDS: ALBUTEROL SO4 2.5/IPRATROPIUM 0.5 INH SOL 3 ML VIAL.NEB. NEB PRN (10:58)
[2024-09-22] MEDS: ALBUTEROL SO4 HFA INHALER IH PRN (22:59)
[2024-09-22] MEDS: MAG HYDROX/AL HYDROX/SIMETH 30 ML UNIT-DOSE CUP PO PRN (23:54)
[2024-09-23] MEDS: TRIMETHOBENZAMIDE HCL 200MG/2ML INJ IM ONE (04:03)
[2024-09-23] MEDS: LOPERAMIDE HCL 2 MG CAPSULE PO PRN (04:11)
[2024-09-23] MEDS: diazePAM 5 MG TABLET PO SCH (06:00)
[2024-09-24] MEDS: diazePAM 5 MG TABLET PO SCH (06:04)
[2024-09-24] MEDS: BICTEGRAV/EMTRICIT/TENOFOV (BIKTARVY) 50-200-25 MG TABLET PO SCH (07:43)
[2024-09-24] MEDS: METHOCARBAMOL 500 MG TABLET PO PRN (21:51)
[2024-09-24] MEDS: traZODone HCL 100 MG TABLET (FP) PO ONE (22:22)
[2024-09-25] MEDS: diazePAM 5 MG TABLET PO ONE (06:31)
[2024-09-25 09:25] VITALS: BP 98/60; PULSE 98; RESP 18; TEMP 98.6
== END 2024-09-25 14:25 | disposition home or self-care (01) | DRG 774 ==
LOC: YASAS 18:19 → Y6N 20:47
PROVIDERS: ADMIT Allergy & Immunology; ATTEND Allergy & Immunology
PROC: HZ2ZZZZ Detoxification Services for Substance Abuse Treatment (ICD-10-PCS; principal; 2024-09-21)
DX: F10.230 Alcohol dependence with withdrawal, uncomplicated (principal); F14.20 Cocaine dependence, uncomplicated; F15.10 Other stimulant abuse, uncomplicated; F17.210 Nicotine dependence, cigarettes, uncomplicated; F19.282 Other psychoactive substance dependence with psychoactive substance-induced sleep disorder; F41.9 Anxiety disorder, unspecified; Z21 Asymptomatic human immunodeficiency virus [HIV] infection status; E78.2 Mixed hyperlipidemia; I25.10 Atherosclerotic heart disease of native coronary artery without angina pectoris; Z95.1 Presence of aortocoronary bypass graft; Z95.5 Presence of coronary angioplasty implant and graft; J41.1 Mucopurulent chronic bronchitis; J45.20 Mild intermittent asthma, uncomplicated; R26.89 Other abnormalities of gait and mobility; Z99.89 Dependence on other enabling machines and devices
CPT/HCPCS: 36415; 80053; 80305; 80307; 85027; 86593; 86780; 93005; 93010; 94640